=== PATIENT | male | born 1950 | race Asian ===

== ENCOUNTER 2018-05-30 00:20 | Inpatient (IN) | payer OTHER, BC ==
[~2018-05-30] VITALS: Ht 172.7 cm; Wt 79.4 kg
[2018-05-30] VITALS (13 sets, daily range): BP systolic 149–208; BP diastolic 80–112
[~2018-05-30 00:20] MED LIST: AMLODIPINE BESY10 MG PO; ASA81BEC PO; ASPERDRINK81 MG PO; ATORVASTATIN CA40 MG PO; FLOMAX0.4 MG PO; LASIX 40 MG TAB40 M2; LIDODERM 5%1 PATC1 TOP; LIPITOR40 MG PO; MEDROLDOSEPACK PO; MILK OF MA400 MG/5 M PO; MOM PO; NITROGLYCERIN0.4 MG SUBLING; NORCO 5-325 TA1 EACH; NORCO 5-325 TA1 EACH PO; NORVASC10 MG; NORVASC10 MG PO; PENICILLIN V P500 MG; PERCOCET; PERCOCET PO; POTASSIUM20 PO; TOPROL XL50 MG PO; TRAMADOL 50 MG50 MG PO; TUMS; TYLENOL325 MG PO; UNICOMPLEX M TA1 TA1 PO
[2018-05-30] MEDS ORDERED: LOPRESSOR100 M1 PO (00:54)
[2018-05-30] MEDS ORDERED: NORVASC5 MG PO (00:55)
[2018-05-30] MEDS ORDERED: CLONIDINE0.1 PO (00:55)
[2018-05-30 03:10] LABS: ABSOLUTE NEUTROPHILS 8.7 thou/uL (1.4-8.2); BASOPHILS 0.8 % (0.0-2.0); EOSINOPHILS 0.8 % (0.0-3.0); HEMATOCRIT 45.6 % (42.0-52.0); HEMOGLOBIN 15.6 gm/dL (14.0-18.0); LYMPHOCYTES 11.1 % (24.0-44.0); MCHC 34.2 g/dL (28.0-37.0); MCV 87.7 fL (80.0-100.0); MONOCYTES 6.5 % (1.0-8.0); PLATELET COUNT 207 thou/uL (150-400); POLYS 80.8 % (36.0-66.0); RDW 13.7 % (10.5-14.5); WBC 10.7 thou/uL (4.0-11.0)
[2018-05-30 03:20] LABS: ANION GAP 8 mmol/L (7-16); BUN 24 mg/dL (7-18); CALCIUM 8.7 mg/dL (8.5-10.1); CHLORIDE 104 mmol/L (98-107); CO2 27 mmol/L (21-32); GLUCOSE 179 mg/dL (74-106); POTASSIUM 3.2 mmol/L (3.5-5.1); SODIUM 139 mmol/L (136-145)
[2018-05-30 03:28] LABS: TROPONIN-I <0.06 ng/mL (<0.06)
--- NOTE | 2018-05-30 05:41 | NUR ---
PATIENT IS A NEW ADMISSION TO THE UNIT THIS SHIFT. HE ARRIVED VIA CART FROM THE ER AND WAS ABLE TO AMBULATE TO THE BED WITHOUT INCIDENT. PATIENT IS ALERT AND ORIENTED AND ABLE TO PARTICIPATE IN ADMISSION PROCESS AND CALL APPROPRIATELY FOR REQUESTS. PATIENT STATES MINIMAL PAIN IN FACE CURRENTLY AND IS BEING TREATED WITH ICE PACKS. NURSE TO COMPLETE ADMISSION AND INITIATE CARE PLAN.
--- NOTE | 2018-05-30 08:02 | EKG ---
[address] [address] ELECTROCARDIOGRAM REPORT Name: YOLANDA HENAO Room #: 355-P ADM IN M.R.#: [id number] ������������������ Admission: 05/30/18 ������������������ Attend Phys: Mika Soriano MD Discharge: ������������������ Date of : 52 Report #: [id number] ����������������������������������������������������������������� [id number] THIS REPORT FOR: //name// [facility] ED Test Date: 2018-05-30 Test Time: 02:51:39 Pat Name: YOLANDA HENAO Department: Room: [facility] Gender: M Absence Management Consultant: Fifi HENSLEY : 1950 Requested By: Kan Swan Order Number: [id number] MD: Jack Johnson Measurements Intervals [place] Rate: 70 P: 34 SD: 206 QRS: -4 QRSD: 97 T: 69 QT: 414 QTc: 447 Interpretive Statements Sinus rhythm Poor R wave progression Compared to ECG 07/18/2013 12:46:43 No significant change was found Electronically Signed On 05-30-2018 8:02:26 CDT by Jack Johnson [email or web address] ��������������������������������������������� <ELECTRONICALLY SIGNED> ���������������������������������������� By: Jack Johnson MD, [facility] ��������������������������������������������� 05/30/18 08 0 0 Jack Johnson MD, FACC /EPI
--- NOTE | 2018-05-30 09:23 | 2DMMODE ---
[facility] [address] [place] [address] 2 D/M-MODE ECHOCARDIOGRAM Name: YOLANDA HENAO Room #: 355-P [facility] IN .R.#: [id number] ������������� Admission: 05/30/18 ������������� Attend Phys: Mika Soriano MD Discharge: ��� ������������� ��� Date of : 52 Date of Service: 05/30/18 0922 �� Report #: [id number] �������� ��������������������������������������������[id number] THIS REPORT FOR: //name// APPROVED REPORT Study performed: 05/30/2018 08:18:26 EXAM: Comprehensive 2D, Doppler, and color-flow Echocardiogram Patient Location: Echo lab Room #: [facility] Status: routine BSA: 1.91 HR: 65 bpm BP: 151/88 mmHg Rhythm: NSR/FREQUENT PVCs Other Information Study Quality: Good Indications Syncope. Hx: HTN, CABG. 2D Dimensions RVDd: 34.24 mm IVSd: 11.00 (7-11mm) LVOT Diam: 21.29 (18-24mm) LVDd: 48.36 mm PWd: 11.00 (7-11mm) Ascending Ao: 42.05 (22-36mm) LVDs: 31.09 (25-40mm) Aortic Root: 37.48 mm Volumes Left Atrial Volume (Systole) Single Plane 4CH: 40.91 mL Single Plane 2CH: 41.91 mL LA ESV Index: 23.00 mL/m2 Aortic Valve AoV Peak Jordan.: 1.43 m/s AO Peak Gr.: 8.19 mmHg LVOT Max P.33 mmHg LVOT Max V: 1.26 m/s ALAN Vmax: 3.13 cm2 Mitral Valve E/A Ratio: 0.8 MV Decel. Time: 292.16 ms MV E Max Jordan.: 0.65 m/s [facility] [address] [place] [address] 2 D/M-MODE ECHOCARDIOGRAM Name: YOLANDA HENAO Room #: 355-[facility] IN ..#: [id number] ������������� Admission: 05/30/18 ������������� Attend Phys: Mika Soriano MD Discharge: ��� ������������� ��� Date of : 52 Date of Service: 05/30/18 0922 �� Report #: [id number] �������� ��������������������������������������������[id number] MV A Jordan.: 0.81 m/s MV PHT: 84.73 ms IVRT: 101.50 ms Pulmonary Valve PV Peak Jordan.: 0.74 m/s PV Peak Gr.: 2.19 mmHg Pulmonary Vein P Vein S: 0.78 m/s P Vein D: 0.38 m/s P Vein S/D Ratio: 2.05 Tricuspid Valve TR Peak Jordan.: 2.10 m/s RAP Estimate: 5.00 mmHg TR Peak Gr.: 17.70 mmHg PA Pressure: 23.00 mmHg Left Ventricle The left ventricle is normal size. There is normal LV segmental wall motion. Mild concentric left ventricular hypertrophy. Left ventricular systolic function is normal. LVEF is 65%. Mild diastolic dysfunction is present (impaired relaxation pattern). Right Ventricle The right ventricle is normal size. The right ventricular systolic function is normal. Atria The left atrium size is normal. The right atrium size is normal. Aortic Valve Aortic valve is trileaflet, minimally calcified. Trace aortic regurgitation. There is no aortic valvular stenosis. Mitral Valve The mitral valve is normal in structure. Trace to mild mitral regurgitation. Tricuspid Valve The tricuspid valve is normal in structure. Trace to mild tricuspid regurgitation. Estimated PAP is 20-25mmHg. Pulmonic Valve The pulmonary valve is normal in structure. Mild pulmonic regurgitation. [facility] [address] [place] [address] 2 D/M-MODE ECHOCARDIOGRAM Name: YOLANDA HENAO Room #: 355-P [facility] IN .R.#: [id number] ������������� Admission: 05/30/18 ������������� Attend Phys: Mika Soriano MD Discharge: ��� ������������� ��� Date of : 52 Date of Service: 05/30/18 0922 �� Report #: [id number] �������� ��������������������������������������������[id number] [employer] Vessels The aortic root is normal in size. Ascending aorta is dilated (4.2cm). IVC is normal in size and collapses >50% with inspiration. Pericardium There is no pericardial effusion. <Conclusion> Left ventricular systolic function is normal. LVEF is 65%. Normal LV segmental wall motion. Mild diastolic dysfunction Aortic valve is trileaflet, minimally calcified. Trace aortic regurgitation, no stenosis. The mitral valve is normal in structure. Trace to mild mitral regurgitation. Trace to mild tricuspid regurgitation. Estimated pulmonary artery pressure of 20-25mmHg. Ascending aorta is dilated (4.2cm). There is no pericardial effusion. ��������������������������������������������� <ELECTRONICALLY SIGNED> ���������������������������������������� By: Jack Johnson MD, [facility] ��������������������������������������������� 05/30/18921 1 1 Jack Johnson MD, FACC /INF
--- NOTE | 2018-05-30 09:55 | NUR ---
ASSESSMENT: CM REVIEWED CHART AND MET WITH PATIENT AT THE BEDSIDE. PT WAS ADMITTED DUE TO SYNCOPE AND FALLING WHILE HE WAS OUT WALKING HIS DOG. PT IS ALERT AND ORIENTED X4. PT REPORTS SHE LIVES AT HOME WITH HIS . PT IS FULLY INDEPENDENT WITH ADLS AND AMBULATION. PT HAS NO HX OF HH/POST ACUTE CARE AND REPORTS HE IS ACTIVE. CM DISCUSSED ROLE. PT DOES NOT ANTICIPATE HAVING ANY NEEDS FROM CM. CM WILL CONTINUE TO FOLLOW TO ASSIST NEEDED. CARDIOLOGY HAS BEEN CONSULTED.
--- NOTE | 2018-05-30 18:08 | NUR ---
ADMITTED FOR SYNCOPE AND WORK UP CONT. HE IS NOW SLEEPING AND RESPIRATIONS ARE NON LABORED. ALERT ORIENTED X4. HAD CAROTID US DONE THIS PM. PLEASANT WITH CARE. WILL CONT WITH PLAN OF CARE.
[2018-05-31] VITALS (7 sets, daily range): BP systolic 129–158; BP diastolic 81–93
[2018-05-31 04:43] LABS: CALCIUM 8.6 mg/dL (8.5-10.1); POTASSIUM 3.1 mmol/L (3.5-5.1)
--- NOTE | 2018-05-31 06:11 | NUR ---
Pt. stated he slept well during the night. Minimal pain to left side of face , denies need for pain med . Ice pack provided and stated it helped. No synopal episode. Bed alarm on , calls appropriately. Making progress towards care plan goals.
--- NOTE | 2018-05-31 16:29 | NUR ---
PATIENT DISCHARGED HOME AT THIS TIME. STATES HE FEEL MUCH BETTER. NO COMPLAIN OF PAIN OR DISTRESS. PLEASANT AND COOPERATIVE WITH CARE. WALKED WITH SON TO CAR.
--- NOTE | 2018-06-03 12:28 | HC ---
[facility] [place] [address] CONSULTATION Name: YOLANDA HENAO Room #: 355-P [facility] IN .R.#: [id number] Admission: 05/30/18 ������������������ Attend Phys: Trever Ta Discharge: 05/31/18 ������������������ Date of : 52 Report #: [id number] THIS REPORT FOR: //name// CC: [facility] Trever Mariee DATE OF SERVICE: 05/31/2018 REASON FOR CONSULTATION: Facial injury. HISTORY OF PRESENT ILLNESS: I was asked to see this patient in regards to a fall that took place about 2 days ago. The patient served as the primary historian. He relates that he fell while walking his dog, but does not remember the fall occurring. When he came out of the syncope, found some blood on his clothes and presented to the Emergency Room. He was found to have some nondisplaced facial fractures and was admitted for evaluation of his syncope. The patient denies since being here of any problems with diplopia. He denies any facial paresthesia. He denies any pain on mastication or limitation of mastication. He has no trismus. He has not noted any visual shifts and states the facial edema is not progressing. He has no new complaints at this time regarding his face since being admitted. ALLERGIES TO MEDICATION: None known. MEDICATIONS ON ADMISSION: Reviewed the patient's med rec form. PAST MEDICAL HISTORY: Notable for essential hypertension, hyperlipidemia, coronary artery disease and benign prostatic hypertrophy. He has had a previous CABG. REVIEW OF SYSTEMS: His present review of systems are negative for any neurologic, cardiovascular or facial issues. PHYSICAL EXAMINATION: He was examined in the hospital chair. He is alert, oriented and conversant. Modest left-sided facial edema is noted with rather prominent left infraorbital ecchymoses and edema present. Examination of the oral cavity shows intact dentition. The oral cavity shows no evidence of any bruising/ecchymoses. Oropharynx is unremarkable. Mid face is stable to movement of the dentition. Intranasal examination shows no evidence of septal hematoma. Nasal septum is relatively straight. Turbinates are normal. By palpation, the ramus and body of the mandible are normal. He has no TMJ pain on palpation or during mastication. The forehead is unremarkable. The orbital rims palpate intact and bilaterally symmetric. He has moderate edema over the left maxilla. The zygomatic arches are intact and symmetric. He has full [address] [address] CONSULTATION Name: YOLANDA HENAO Room #: 355-P DIS IN M.R.#: [id number] Admission: 05/30/18 ������������������ Attend Phys: Trever Ta Discharge: 05/31/18 ������������������ Date of : 52 Report #: [id number] extraocular movement. DIAGNOSTIC DATA: I reviewed his CT scan. There was evidence of nondisplaced left lateral orbit fracture, left anterior maxillary antral wall fracture, posterolateral maxillary wall fracture which was displaced and a very small chip fracture on the nasal tip. His mid face otherwise appears stable. ASSESSMENT: History of facial fracture following a fall. RECOMMENDATIONS: I believe these can be treated nonsurgically as he has a stable mid face. I did recommend avoiding of nasal blowing for several weeks. I would recommend he see his link trainer mechanic on a followup when he leaves the hospital to ensure there are no retinal abnormalities from the fall. He was made aware that the facial fracture should heal in a period of 6-8 weeks and he should avoid any activities that would cause further trauma directly to the left mid face. He was given information that he may be at slightly higher risk for chronic left maxillary sinusitis in the future due to the location of the injuries. I gave him my business card. He will follow up with me should he have any concerns about sensations in the face over the next 4-6 weeks. Thank you for the consultation. ��������������������������������������������� <ELECTRONICALLY SIGNED> ���������������������������������������� By: Nick Mcneil MD ��������������������������������������������� 06/03/18 1228 1520 0240 Nick Mcneil MD /nt
== END 2018-05-31 16:26 | disposition home or self-care (01) | DRG 157 ==
LOC: ER 00:20 → EROBS 03:48 → 3W 03:48
PROVIDERS: Emergency Medicine; Nurse Practitioner Family; ADMIT Hospitalist
DX: S02.40DA Maxillary fracture, left side, initial encounter for closed fracture (principal); E43 Unspecified severe protein-calorie malnutrition; S02.40FA Zygomatic fracture, left side, initial encounter for closed fracture; I25.10 Atherosclerotic heart disease of native coronary artery without angina pectoris; I10 Essential (primary) hypertension; E87.6 Hypokalemia; E78.5 Hyperlipidemia, unspecified; N40.0 Benign prostatic hyperplasia without lower urinary tract symptoms; W01.0XXA Fall on same level from slipping, tripping and stumbling without subsequent striking against object, initial encounter; Z95.1 Presence of aortocoronary bypass graft; Z79.82 Long term (current) use of aspirin; Z79.899 Other long term (current) drug therapy; Y93.89 Activity, other specified; Y92.89 Other specified places as the place of occurrence of the external cause; Y99.8 Other external cause status
CPT/HCPCS: 10879

== ENCOUNTER → 2019-08-13 | Outpatient (CLI) | payer OTHER, BC ==
[~2019-08-13] MED LIST changes: +CLONIDINE0.1 PO; +LOPRESSOR100 M1 PO; +NORVASC5 MG PO
== END ==
LOC: SJCVCIMAG 08-05 11:55
DX: I25.810 Atherosclerosis of coronary artery bypass graft(s) without angina pectoris (principal); I77.810 Thoracic aortic ectasia; Z95.1 Presence of aortocoronary bypass graft

== ENCOUNTER 2020-02-03 14:21 | Inpatient (IN) | payer OTHER, BC ==
[~2020-02-03] VITALS: Ht 172.7 cm; Wt 77.1 kg
[~2020-02-03 14:21] MED LIST changes: -LOPRESSOR100 M1 PO; +TOPROL XL100 MG PO
[2020-02-03 14:45] VITALS: BP 185/99
[2020-02-03] MEDS ORDERED: CLONIDINE HCL0.1 M1 PO (14:55)
[2020-02-03] MEDS ORDERED: LIPITOR 20 MG T20 M1 PO (14:55)
[2020-02-03 15:46] LABS: ANION GAP 8 mmol/L (7-16); BUN 15 mg/dL (7-18); CHLORIDE 100 mmol/L (98-107); CO2 28 mmol/L (21-32); CREATININE 1.1 mg/dL (0.7-1.3); GLUCOSE 160 mg/dL (74-106); POTASSIUM 3.1 mmol/L (3.5-5.1); SODIUM 136 mmol/L (136-145)
[2020-02-03 15:49] LABS: ABSOLUTE NEUTROPHILS 5.1 thou/uL (1.4-8.2); BASOPHILS 0.1 % (0.0-2.0); EOSINOPHILS 0.1 % (0.0-3.0); HEMATOCRIT 46.6 % (42.0-52.0); HEMOGLOBIN 15.7 gm/dL (14.0-18.0); LYMPHOCYTES 8.2 % (24.0-44.0); MCH 29.4 pg (26.0-34.0); MCHC 33.7 g/dL (28.0-37.0); MCV 87.1 fL (80.0-100.0); MONOCYTES 10.1 % (1.0-8.0); PLATELET COUNT 192 thou/uL (150-400); POLYS 81.5 % (36.0-66.0); RBC 5.35 mil/uL (4.50-6.00); RDW 13.1 % (10.5-14.5); WBC 6.3 thou/uL (4.0-11.0)
--- NOTE | 2020-02-03 15:53 | EKG ---
[facility] [place] [address] ELECTROCARDIOGRAM REPORT Name: YOLANDA HENAO Room #: [facility]#: [id number] Admission: 02/03/20 Attend Phys: Discharge: Date of : 52 Report #: [id number] THIS REPORT FOR: cc: David Mariee MD, Kirk D. 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 : 1950 Requested By: Ghada Kenney Order Number: [id number] MD: Winston Macias Measurements Intervals [place] Rate: 88 P: 57 NE: 152 QRS: 47 QRSD: 92 T: 15 QT: 408 QTc: 494 Interpretive Statements Sinus rhythm Left atrial enlargement Minimal ST depression, lateral leads Borderline prolonged QT interval Compared to ECG 05/30/2018 02:51:39 Atrial abnormality now present ST (T wave) deviation now present Poor R-wave progression no longer present Electronically Signed On 02-03-2020 15:53:40 ANESTHESIOLOGY MEDICAL DOCTOR by Winston Macias [email or web address] <ELECTRONICALLY SIGNED> By: Winston Macias MD, FAC 02/03/20 1553 1447 1447 Winston Macias MD, [facility] /EPI
[2020-02-03 15:56] LABS: ALBUMIN 2.9 g/dL (3.4-5.0); SGOT 57 U/L (15-37); SGPT 54 U/L (30-65); TOTAL BILIRUBIN 1.3 mg/dL (0.2-1.0); TOTAL PROTEIN 7.3 g/dL (6.4-8.2); TROPONIN-I <0.06 ng/mL (<0.06)
--- NOTE | 2020-02-03 19:04 | NUR ---
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 EMERGENCY CONTACT UPDATED (SON ON LIST) REQUESTED BY PT.
[2020-02-03 19:19] LABS: BE(vivo) 2.7 mmol/L (-2 to +3); HCO3 25.4 mmol/L (22.0-26.0); PCO2 33.6 mmHg (35.0-45.0); PO2 78.1 mmHg (80.0-100.0); pH 7.496 (7.360-7.450); sO2 96.5 % (92.0-98.0)
[2020-02-04] VITALS (7 sets, daily range): BP systolic 159–198; BP diastolic 93–121
--- NOTE | 2020-02-04 01:08 | NUR ---
NEW ADMIT FROM ED. PT WAS AT HOME SOA, FEVER COUGH. PT TESTED POSITIVE COVID AT [facility] ON 01/21. PT STATED HIS YOUNGEST SON HAS TESTED POSITIVE. PT LIVES WITH HIS . PTS DESIGNATED CREDIT MANAGER IS HIS SON ANTWON. PT IS A0X4, INDEP STEADY GAIT. O2 PER NC 1L. LUNGS DIMINISHED. PT REQUESTING FOOD AND PROVIDED. PT HAS HX HTN, CABG, HIGH CHOLESTEROL. PT RECEIVED IV ANTIBIOTICS IN ED.
--- NOTE | 2020-02-04 01:34 | NUR ---
CUT OUT STITCHER PROVIDER NOTIFIED OF ELEVATED BP. PT REPORTS NOT TAKING ANY OF HIS DIALY MEDICATIONS TODAY. ORDER TO GIVE AM LOPRESSOR NOW.
[2020-02-04 05:50] LABS: HEMATOCRIT 47.3 % (42.0-52.0); HEMOGLOBIN 16.3 gm/dL (14.0-18.0); MCH 30.1 pg (26.0-34.0); MCHC 34.6 g/dL (28.0-37.0); MCV 87.1 fL (80.0-100.0); RBC 5.42 mil/uL (4.50-6.00); RDW 13.5 % (10.5-14.5); WBC 3.4 thou/uL (4.0-11.0)
--- NOTE | 2020-02-04 06:05 | NUR ---
BP REMAINS ELEVATED, PROVIDER NOTIFIED, AM BP MEDS PROVIDED.
[2020-02-04 06:10] LABS: CALCIUM 9.1 mg/dL (8.5-10.1); MAGNESIUM 2.3 mg/dL (1.8-2.4); POTASSIUM 3.7 mmol/L (3.5-5.1)
[2020-02-04 11:23] LABS: ALBUMIN 2.5 g/dL (3.4-5.0); CREATININE 1.3 mg/dL (0.7-1.3); DIRECT BILIRUBIN 0.3 mg/dL (<0.1-0.2); TOTAL BILIRUBIN 0.9 mg/dL (0.2-1.0); TOTAL PROTEIN 6.9 g/dL (6.4-8.2)
--- NOTE | 2020-02-04 14:09 | NUR ---
PT IS AOX4, VSS, WATCHING ELEVATED BP. TOOK BP MEDS ORDERED. REMAINS ON 1L O2. PT DENIES PAIN, IV PATENT WITH ANTIBIOTICS FLOWING. PT REPORTS SOA WITH ACTIVITY AND OXYGEN IS HELPING HIM RELAX. CALL LIGHT IN REACH. WILL CONTINUE TO MONITOR.
--- NOTE | 2020-02-04 15:44 | NUR ---
INITIAL ASSESSMENT: Received consult for discharge planning. SW reviewed chart and spoke with nursing. Pt was admitted from home and placed in Enhanced Isolation due to COVID-19. Pt had first positive COVID test on 01/25. Pt is afebrile and on 2L of O2. Pt is on IV abx and IV steroids. Pt to be started on Remdesivir. SW spoke with pt via phone. Introduced role of SW. Pt is alert/orientated x 4. Pt reports he lives at home with his . Pt has stairs to enter the house and up to the second level where the bedroom is located. Prior to admission, pt was independent with ADLs. Pt had CABG in 2014. No hx of services or post-acute placement. Pt's PCP was Dr. David Mariee, who recently . Pt is unsure who his new PCP will be. 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 Pt states that he may need documentation to verify pt's hospitalization, as his family had arrangements to go on vacation for the . SW provided contact info to assist with documentation if needed. Plan is for pt to return home when medically stable. SW is following to assist as needed with discharge planning.
[2020-02-05 00:13] VITALS: BP 143/101
--- NOTE | 2020-02-05 01:44 | NUR ---
PT INDEP STEADY GAIT, O2 PER NC. LUNGS DIMINSHED, COUGH DRY. IV ANTIBIOTICS PROVIDED. PRN FOR ELEVATED BP.
[2020-02-05 04:19] VITALS: BP 180/112
--- NOTE | 2020-02-05 06:23 | NUR ---
AM BP ELEVATED PRN HYDRALAZINE REPEATED.
[2020-02-05 06:58] LABS: ALBUMIN 2.5 g/dL (3.4-5.0); CREATININE 1.1 mg/dL (0.7-1.3); DIRECT BILIRUBIN 0.2 mg/dL (<0.1-0.2); TOTAL BILIRUBIN 0.6 mg/dL (0.2-1.0); TOTAL PROTEIN 6.5 g/dL (6.4-8.2)
[2020-02-05 07:15] VITALS: BP 158/101
--- NOTE | 2020-02-05 12:13 | EKG ---
[facility] [place] [address] ELECTROCARDIOGRAM REPORT Name: JULIANOYOLANDA Fowler Room #: 359- ADM IN M.R.#: [id number] Admission: 02/03/20 Attend Phys: Pa Hernandez MD Discharge: Date of : 52 Report #: [id number] THIS REPORT FOR: cc: David Mariee MD, Kirk D. 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 : 1950 Requested By: Pa Hernandez Order Number: [id number] MD: Winston Macias Measurements Intervals [place] Rate: 80 P: 42 [place]: 176 QRS: -7 QRSD: 98 T: 66 QT: 393 QTc: 454 Interpretive Statements Sinus rhythm Atrial premature complex Anteroseptal infarct, age indeterminate Compared to ECG 02/03/2020 14:47:38 Atrial premature complex(es) now present Myocardial infarct finding now present Atrial abnormality no longer present ST (T wave) deviation no longer present Electronically Signed On 02-05-2020 12:12:24 SIGNAL INSPECTOR by Winston Macias [email or web address] <ELECTRONICALLY SIGNED> By: Winston Macias MD, FACC 02/05/20 1212 1002 1002 Winston Macias MD, FACC /EPI
--- NOTE | 2020-02-05 12:22 | HC ---
[facility] [place] [address] CONSULTATION Name: YOLANDA HENAO Room #: 359-P ADM IN M.R.#: [id number] Admission: 02/03/20 Attend Phys: Pa Hernandez MD Discharge: Date of : 52 Report #: [id number] THIS REPORT FOR: cc: David Mariee MD, Kirk D. MD Barry, Joseph W. MD ~ DATE OF SERVICE: 02/04/2020 INFECTIOUS DISEASE CONSULTATION ATTENDING PHYSICIAN: Dr. Hernandez. REASON FOR EVALUATION: COVID-19 infection, complicated by pneumonitis, hypoxemia. HISTORY OF SUBJECTIVE: Chart reviewed, the patient examined. This is a 69-year-old man with history of known vasculopathy, coronary artery disease, hypertension, who noted fairly symptomatic with dyspnea and cough roughly on 01/22/2020. He was tested in an urgent care. He was confirmed around the 01/26/2020. Due to his lack of improvement, he early on, had fevers, although these have resolved. He has had some anorexia with poor p.o. intake. He has got this persistent cough, primarily nonproductive as well as progressive dyspnea. He was evaluated and found to be COVID PCR positive. Chest x-ray did confirm patchy interstitial alveolar infiltrates. ABGs were borderline hypoxemia. He is not encephalopathic due to concerns about progressive pneumonitis. He was initiated on therapy with remdesivir as well as corticosteroids as well as azithromycin and ceftriaxone for possible secondary bacterial pneumonitis. At this point, he is on supplemental oxygen at 2 liters nasal cannula. ALLERGIES: None known. MEDICATIONS: Include azithromycin, ceftriaxone, multivitamin, amlodipine, metoprolol, clonidine, tamsulosin, aspirin, atorvastatin, enoxaparin, dexamethasone 10 mg q. 12 hours, remdesivir a standard loading dose of 100 daily for 4 days. PAST MEDICAL HISTORY: As described above, coronary artery disease with previous aortocoronary bypass grafting in 2015, has hypertension, dyslipidemia, possible obstructive sleep apnea. SOCIAL HISTORY: Nonsmoker, no ethanol, no illicit drug use. FAMILY HISTORY: Noncontributory. [facility] [address] [address] CONSULTATION Name: YOLANDA HENAO Room #: 359-P [facility] IN .R.#: [id number] Admission: 02/03/20 Attend Phys: aP Hernandez MD Discharge: Date of : 52 Report #: [id number] REVIEW OF SYSTEMS: As above. PHYSICAL EXAMINATION: GENERAL: Pleasant, alert, cooperative, in mild distress at this point. He is lucid, somewhat chronically ill. VITAL SIGNS: Temperature 97, pulse 64, respirations 16, blood pressure 184/109. SKIN: Warm, dry, no rashes. HEENT: Normocephalic. Extraocular muscles intact. Nasal cannula in place. NECK: Supple. LUNGS: Few scattered coarse breath sounds. HEART: Regular. Borderline bradycardic. I do not appreciate a murmur. ABDOMEN: Soft, nontender, nondistended. EXTREMITIES: No cyanosis. GENITOURINARY AND RECTAL: Deferred. LABORATORY DATA: Initial CBC: White count of 6.3, H and H 15.7 and 46.6, platelets of 192. Electrolytes: Sodium 136, potassium 3.1, chloride 100, bicarbonate 28, anion gap of 8, BUN and creatinine 15 and 1.1. AST of 57, ALT of 54. Albumin of 2.9, total protein 7.3, estimated GFR of 67. ProBNP of 659. Chest x-ray as described above. ASSESSMENT: COVID-19 infection, complicated by pneumonitis and respiratory failure. Secondly, has atherosclerotic coronary artery disease, potential sleep apnea as well. We will continue current approach with a combination of empiric antibacterials as well as treatment for the coronavirus. At this point, he is not critically ill. We will monitor expectantly to make efforts to wean off support and follow expectantly. <ELECTRONICALLY SIGNED> By: Umang Castillo MD 02/05/20 1222 1438 1020 Umang Castillo MD /nt
--- NOTE | 2020-02-05 14:44 | NUR ---
ZHANG reviewed chart and spoke with nursing and attending physician. Pt remains in Enhanced Isolation due to COVID-19. Pt is afebrile and on 2L of O2. Pt is on IV abx and IV steroids. Completing course of Remdesivir. SW spoke with pt via phone. Confirmed pt received contact info for [facility]HANG in order to assist with providing documentation to cancel upcoming travel plans. ZHANG is following to assist as needed with discharge planning.
[2020-02-05 15:24] VITALS: BP 154/95
--- NOTE | 2020-02-05 19:28 | NUR ---
ASSUMED PATIENT CARE AT 0700. A/O 4. VSS. SOB WITH EXERTION. SLOWLY TOWARDS POC GOALS.
[2020-02-05 20:00] VITALS: BP 165/102
[2020-02-06 02:00] VITALS: BP 149/85
[2020-02-06 05:00] VITALS: BP 193/84
[2020-02-06 06:35] LABS: ALBUMIN 2.5 g/dL (3.4-5.0); DIRECT BILIRUBIN 0.2 mg/dL (<0.1-0.2); TOTAL BILIRUBIN 0.5 mg/dL (0.2-1.0); TOTAL PROTEIN 5.8 g/dL (6.4-8.2)
[2020-02-06 08:26] VITALS: BP 171/95
--- NOTE | 2020-02-06 14:44 | NUR ---
SW reviewed chart and spoke with nursing and attending physician. Pt remains in Enhanced Isolation due to COVID-19. Pt is afebrile and on 2L of O2. Pt is on IV abx and IV steroids. Pt is completing course of Remdesivir. No weekend discharge planned. Pt to have rest/exercise oximetry to determine if pt needs home O2. Plan is for pt to discharge home when medically stable. ZHANG is following to assist as needed with discharge planning.
[2020-02-06 15:28] VITALS: BP 175/106
--- NOTE | 2020-02-06 18:20 | NUR ---
ASSUMED PATIENT CARE AT 0700. A/O X. UP AD DEBORAH IN ROOM. SOB WHEN WALKING. SLOWLY TOWARDS POC GOALS.
[2020-02-06 19:51] VITALS: BP 162/96
[2020-02-07 03:27] VITALS: BP 161/94
--- NOTE | 2020-02-07 05:19 | NUR ---
PT ON O2 A 2L PER NC. LUNGS CLEAR, DIMINISHED THROUGHOUT. DENIES ANY SOA AT REST AND STATES HE BELIEVE HIS BREATHING SLIGHTLY BETTER THAN WHEN HE WAS ADMITTED.
[2020-02-07 08:00] VITALS: BP 170/89
[2020-02-07 08:25] LABS: ALBUMIN 2.5 g/dL (3.4-5.0); DIRECT BILIRUBIN 0.2 mg/dL (<0.1-0.2); TOTAL BILIRUBIN 0.6 mg/dL (0.2-1.0); TOTAL PROTEIN 6.1 g/dL (6.4-8.2)
[2020-02-07 15:57] VITALS: BP 167/92
--- NOTE | 2020-02-07 19:39 | NUR ---
PATIENT PLEASANT WITH CARE AND DOES NOT SEEM TO BE IN PAIN. RESPIRATIONS ARE NON LABORED. CONT ON ABT FOR COVID. TOLERATING WELL. IV INFILTRATED TO RIGHT FOREARM AND NEW IV PLACED TO LEFT FOREARM. UP AD DEBORAH. WILL CONT WITH PLAN OF CARE.
[2020-02-07 20:45] VITALS: BP 177/101
[2020-02-08 04:45] VITALS: BP 156/80
[2020-02-08 06:00] LABS: ALBUMIN 2.4 g/dL (3.4-5.0); DIRECT BILIRUBIN 0.1 mg/dL (<0.1-0.2); TOTAL BILIRUBIN 0.5 mg/dL (0.2-1.0); TOTAL PROTEIN 5.7 g/dL (6.4-8.2)
[2020-02-08 08:36] VITALS: BP 160/92
[2020-02-08 15:31] VITALS: BP 143/68
--- NOTE | 2020-02-08 19:04 | NUR ---
CONT ON ABT FOR COVID AND PNEU. PATIENT PLEASANT WITH CARES. NO COMPLAIN OF PAIN NOTED. WILL CONT WITH PLAN OF CARE.
[2020-02-08 19:41] VITALS: BP 158/99
--- NOTE | 2020-02-09 02:05 | NUR ---
PT AMBULATING IN ROOM INDEPENDENTLY AND IS TOLERATING FAIR. DENIES PAIN. POSSIBLE DISCHARGE HOME 02/08. RESTING COMFORTABLY. NO NEEDS VOICED. CALL LIGHT WITHIN REACH. FREQUENT OBSERVATION.
[2020-02-09 08:00] VITALS: BP 134/86
[2020-02-09] MEDS ORDERED: PREDNISONE 5 MG5 MG PO (14:10)
[2020-02-09] MEDS ORDERED: AMLODIPINE BESY10 MG PO (14:10)
[2020-02-09] MEDS ORDERED: CEFDINIR300 MG PO (14:10)
--- NOTE | 2020-02-09 14:16 | NUR ---
DISCHARGE NOTE: ZHANG reviewed chart and spoke with nursing and attending physician. Pt remains in Enhanced Isolation due to COVID-19. Pt is afebrile and on 2L of O2. Pt is medically stable for discharge home today. Recommendation made for pt to HH services. Rest/exercise oximetry ordered to determine if pt needs home O2. ZHANG spoke with pt via phone to discuss discharge plan. Pt is agreeable with HH and Home O2 if needed. SW confirmed pt's home address and phone number. ZHANG provided options for HH and DME providers. No preference voiced. ZHANG faxed HH referral to [facility]. Notified liaison of new referral. Awaiting finalized discharge orders/summary at this time. Pt's family to provide transportation home. ZHANG is following to finalize discharge.
[2020-02-09 15:16] VITALS: BP 134/86
[2020-02-09 16:29] VITALS: BP 134/86
[2020-02-09 16:57] VITALS: BP 134/86
[2020-02-09 17:00] VITALS: BP 134/86
--- NOTE | 2020-02-10 14:24 | NUR ---
PT DISCHARGED LATE YESTERDAY TO HOME WITH [facility] FAXED DC ORDERS/SUMMARY AND WILL NOTIFY PT TIME OF VISITS.
--- NOTE | 2020-02-11 07:45 | NUR ---
BPCI LETTER ISSUED TO PATIENT IN CONJUNCTION WITH ADMISSION PASCKET COPY GIVEN BY REGISTRATION
== END 2020-02-09 18:35 | disposition home health service (06) | DRG 871 ==
LOC: ER 14:21 → EROBS 18:14 → 3W 18:14
PROVIDERS: Physician Assistant; ADMIT Internal Medicine; ATTEND Internal Medicine
PROC: XW033E5 Introduction of Remdesivir Anti-infective into Peripheral Vein, Percutaneous Approach, New Technology Group 5 (ICD-10-PCS; principal; 2020-02-04)
DX: A41.9 Sepsis, unspecified organism (principal); U07.1 COVID-19; J96.01 Acute respiratory failure with hypoxia; J12.89 Other viral pneumonia; J15.9 Unspecified bacterial pneumonia; G47.33 Obstructive sleep apnea (adult) (pediatric); N40.0 Benign prostatic hyperplasia without lower urinary tract symptoms; I10 Essential (primary) hypertension; I25.10 Atherosclerotic heart disease of native coronary artery without angina pectoris; E78.5 Hyperlipidemia, unspecified; Z95.1 Presence of aortocoronary bypass graft; Z79.899 Other long term (current) drug therapy
CPT/HCPCS: 10879

== ENCOUNTER → 2020-04-08 | Outpatient (CLI) | payer OTHER, BC ==
[~2020-04-08] MED LIST changes: +CEFDINIR300 MG PO; +CLONIDINE HCL0.1 M1 PO; +LIPITOR 20 MG T20 M1 PO; +PREDNISONE 5 MG5 MG PO
== END ==
LOC: SJCVC 10:24
PROVIDERS: ATTEND Internal Medicine Cardiovascular Disease
DX: R94.31 Abnormal electrocardiogram [ECG] [EKG] (principal); I25.10 Atherosclerotic heart disease of native coronary artery without angina pectoris; I10 Essential (primary) hypertension; E78.00 Pure hypercholesterolemia, unspecified; R06.00 Dyspnea, unspecified; N40.0 Benign prostatic hyperplasia without lower urinary tract symptoms; E78.5 Hyperlipidemia, unspecified; Z95.1 Presence of aortocoronary bypass graft; Z79.82 Long term (current) use of aspirin; Z79.899 Other long term (current) drug therapy; Z86.16 Personal history of COVID-19

== ENCOUNTER → 2020-05-12 | Outpatient (CLI) | payer OTHER, BC | LOC: RAD 13:25 | PROVIDERS: ATTEND Internal Medicine | DX: R06.02 Shortness of breath (principal) ==

== ENCOUNTER → 2020-06-28 | Outpatient (CLI) | payer OTHER, BC | LOC: LAB 12:25 | PROVIDERS: ATTEND Internal Medicine | DX: Z01.812 Encounter for preprocedural laboratory examination (principal); Z20.822 Contact with and (suspected) exposure to COVID-19 ==

== ENCOUNTER → 2020-06-30 | Outpatient (CLI) | payer OTHER, BC ==
--- NOTE | ~2020-06-30 | PFR/MVV ---
[facility] [place] [address] PULMONARY FUNCTION MVV/REPORT Name: YOLANDA HENAO Room #: [facility]#: [id number] Admission: 06/30/20 Attend Phys: Sloan Shannon MD Discharge: Date of : 52 Report #: [id number] THIS REPORT FOR: //name// >> SPIROMETRY: (BTPS) Height: in cm Weight: lbs kg Exam Date: PRE-RX POST-RX PRED BEST %PRED BEST %PRED %CHG FVC LITERS . . . . . . FEV1 LITERS . . . . . . FEV1/FVC % . . . . . . UUE05-36% L/Sec . . . . . . PEF L/SEC . . . . . . FEF50/FIF50 UNITLESS . . . . . . MVV L/Min . . . f 1/Min . . . >> LUNG VOLUMES: (BTPS) PRE-RX POST-RX PRED AVG %PRED AVG %PRED %CHG VC Liters . . . . . . TLC Liters . . . . . . RV Liters . . . . . . RV/TLC % . . . . . . FRC PL Liters . . . . . . FRC N2 Liters . . . . . . ERV Liters . . . . . . IC Liters . . . . . . >> DIFFUSION: DLCO ml/Min/mmHg . . . . . . DL Amberly ml/Min/mmHg . . . . . . DLCO/VA ml/Min/mmHg . . . . . . VA Liters . . . . . . COMMENTS: COMMENTS: >> RESISTANCE: [facility] [address] [place] [address] PULMONARY FUNCTION MVV/REPORT Name: YOLANDA HENAO Room #: REG [facility]#: [id number] Admission: 06/30/20 Attend Phys: Sloan Shannon MD Discharge: Date of : 52 Report #: [id number] PRE-RX PRED AVG %PRED Raw Total cmH20/L/Sec . . . Raw Insp cmH20/L/Sec . . . Raw Exp cmH20/L/Sec . . . Raw cmH20/L/Sec . . . Gaw L/Sec/cmH20 . . . sRaw cmH20 Sec . . . sGaw l/cmH20 Sec . . . Vtq Liters . . . # = OUTSIDE 95% CONFIDENCE INTERVAL CALIBRATION: PRED: 3.00 ACTUAL: EXP 3.01 INSP 3.02 [facility]-OL10- [facility]-- N-[id number] >> INTERPRETATION/IMPRESSION: DATE OF SERVICE: 06/30/2020 PULMONARY FUNCTION STUDIES ATTENDING PHYSICIAN: Dr. Sloan Shannon. SPIROMETRY: FEV1 is 2.67 liters (96%), FVC is 3.62 liters (88%), FEV1/FVC is 74%. Postbronchodilator therapy with no significant response. LUNG VOLUMES: Total lung capacity is 7.55 liters (125%). RV is 2.06 liters (86%). Diffusing capacity is 88%. IMPRESSION: Pulmonary function studies are consistent with a mild obstructive airflow defect with no significant response to bronchodilator therapy. There is mild hyperinflation. Diffusing capacity is normal. By: Barry Celaya MD /nt
== END ==
LOC: PUL 12:45
PROVIDERS: ATTEND Internal Medicine
DX: J98.11 Atelectasis (principal); J98.8 Other specified respiratory disorders; R06.00 Dyspnea, unspecified

== ENCOUNTER → 2020-10-21 | Outpatient (CLI) | payer OTHER, BC | LOC: SJCVCIMAG 07:35 | PROVIDERS: ATTEND Internal Medicine Cardiovascular Disease | DX: I08.8 Other rheumatic multiple valve diseases (principal); R94.31 Abnormal electrocardiogram [ECG] [EKG]; I49.3 Ventricular premature depolarization; I77.89 Other specified disorders of arteries and arterioles; I25.10 Atherosclerotic heart disease of native coronary artery without angina pectoris; I10 Essential (primary) hypertension; E78.00 Pure hypercholesterolemia, unspecified; N40.0 Benign prostatic hyperplasia without lower urinary tract symptoms; E78.5 Hyperlipidemia, unspecified; Z95.1 Presence of aortocoronary bypass graft; Z79.82 Long term (current) use of aspirin; Z79.899 Other long term (current) drug therapy; Z86.16 Personal history of COVID-19 ==

== ENCOUNTER → 2020-11-04 | Outpatient (CLI) | payer OTHER, BC | LOC: ULTRA 10:23 | PROVIDERS: ATTEND Family Medicine | DX: R22.1 Localized swelling, mass and lump, neck (principal) ==

== ENCOUNTER → 2020-12-28 | Outpatient (CLI) | payer OTHER, BC ==
[2020-12-28 09:18] LABS: CREATININE 1.1 mg/dL (0.7-1.3)
== END ==
LOC: MRI 08:36
PROVIDERS: ATTEND Otolaryngology Plastic Surgery within the Head & Neck
DX: D17.0 Benign lipomatous neoplasm of skin and subcutaneous tissue of head, face and neck (principal); M47.812 Spondylosis without myelopathy or radiculopathy, cervical region

== ENCOUNTER → 2021-02-02 | Outpatient (CLI) | payer OTHER, BC ==
--- NOTE | 2021-02-08 11:07 | PATH ---
[facility] [address] [address] PATHOLOGY RPT PROCEDURE Name: JULIANOYOLANDA JOCELYNEMARTYREJI Room #: REG [facility]#: [id number] Admission: 02/02/21 Date of : 52 Discharge: Report #: [id number] Path Case #: [id number] [facility] Accession Number: [id number] . 01 Material submitted: . neck - RIGHT NECK MASS. Modifiers: right . 01 Clinical history: . US FINE NEEDLE ASPIRATION OF NECK WITH US GUIDANCE . 01 Diagnosis: Soft tissue, "right neck mass": - Fibroadipose tissue. - No lymphoid elements identified. - See comment. (DAWSON:isabel; 02/04/2021) [facility] 02/04/2021 1336 Local . 01 Comment: An attempt was made to reach Dr. Marcello Conye on 02/04/2021. 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 The biopsy is minute and may not be patient services representative. Suggest clinical correlation and follow up as clinically indicated. (DAWSON:isabel; 02/04/2021) . 01 Addendum: . Special studies report received from [facility], [address] [place] [address], [address], [place], [address], on case [id number], labeled with their number [id number], dated 02/05/2021. . Flow Cytometry: Hematologic Neoplasia Assessment . Clinical History Right neck mass . Indication For Study Evaluation for hematolymphoid neoplasia . Specimen Tissue, Right Neck . Viability 62% (7AAD exclusion) . Interpretation Tissue, Right Neck: [address] [address] PATHOLOGY RPT PROCEDURE Name: YOLANDA POLK Room #: [facility] [id number] Admission: 02/02/21 Date of : 52 Discharge: Report #: [id number] Path Case #: [id number] No significant lymphoid immunophenotypic abnormalities detected . Comments Correlation with available clinical, laboratory, and morphologic data is recommended. . Populations Analyzed Lymphocytes: 9% B-cells: 0.1%, polytypic/polyclonal sIg light chain pattern T-cells: no significant abnormalities of the markers tested CD45 Negative 91% No significant reactivity with the markers tested Events/Debris: (may represent non-hematolymphoid cells, degenerated cells, debris, unlysed red blood cells, etc.) . Morphologic Evaluation A slide was reviewed for environmental quality analyst purposes only. . Specimen Description Total Cell Yield: 0.02 X 10 and 6 . Reagent(s) Used CD5, CD10, CD19, CD20, CD45, kappa, lambda . at [email or web address]. Kirt Miguel MD Pathologist . Intended Use Flow cytometry is optimally used to immunophenotypically characterize abnormal populations when they are detected. Negative flow cytometry results do not exclude lymphoma or neoplasia. Possible false negative flow cytometry results may occur in, but are not limited to, the following: neoplastic cells in Hodgkin lymphoma are not typically adequately represented by routine clinical flow cytometry; neoplastic cells may be lost or inadequately represented due to degeneration, sample processing, sampling artifact, or patchy involvement; plasma cells are typically underrepresented by flow cytometry; immature cells/blasts may be underrepresented due to hemodilution; myeloproliferative disorders and low grade myelodysplasia may not have immunophenotypic abnormalities or increased blasts. Correlation with all available clinical, laboratory, and morphologic data is always necessary to assess for the possibility of false negative flow cytometry results and to establish a diagnosis. Each marker in this analysis was used to assess for potential antigenic abnormalities or to evaluate detected abnormalities. . Any image or images that accompany this report are patient services [place] [address] PATHOLOGY RPT PROCEDURE Name: YOLANDA POLK AMITA Room #: REG [facility]#: [id number] Admission: 02/02/21 Date of : 52 Discharge: Report #: [id number] Path Case #: [id number] only and should not be used to render a diagnosis. . Disclaimer(s) This test was developed and its performance characteristics determined by [facility] [email or web address]. It has not been cleared or approved by the Food and Drug Administration. . [facility] is a business unit of [facility] a wholly-owned subsidiary of [employer]. . This test was performed at [facility]. at [address], [place], [address] - Aircraft Cleaning Supervisor: Tc Cox MD. . For inquiries, the physician may contact Lab: [phone] . A complete copy of the report is on file. . Professional services performed by [facility] at [address], [place] [address]. Technical services performed by [facility] at [address], [place] [address]. . (SHA:[facility] 02/07/2021) . [place]/02/07/2021 Addendum Electronically Signed by Lauri Kimble MD. Pathologist . 01 Electronically signed: . Lauri Kimble MD, Pathologist NPI- [id number] . 01 Gross description: . Received in formalin labeled "Yolanda Polk, right neck mass" are multiple minute garzon-white cylindrical soft tissue fragments measuring in aggregate 0.9 x 0.3 x 0.1 cm. The specimen is submitted entirely in cassettes A1-A3. Also present is a container filled with RPMI solution, labeled identically. The container displays multiple minute garzon-white tissue fragments. The RPMI tissue is forwarded for ancillary studies. (SK; 02/03/2021) [facility] 02/03/2021 1244 Local . 01 Pathologist provided ICD-10: R22.1 . 01 CPT . [address] [address] PATHOLOGY RPT PROCEDURE Name: YOLANDA POLK Room #: REG [facility] Branch.#: [id number] Admission: 02/02/21 Date of : 52 Discharge: Report #: [id number] Path Case #: [id number] Specimen Comment: A courtesy copy of this report has been sent to [phone] Specimen Comment: Report sent to Specimen Comment: A duplicate report has been generated due to demographic updates. Performed at: [facility] [place] [address] [facility] [address], [place], [place] [id number] MD Lauri Kimble MD Phone: [phone]
== END | disposition home or self-care (01) ==
LOC: ULTRA 08:30
PROVIDERS: ATTEND Otolaryngology Plastic Surgery within the Head & Neck
DX: R22.1 Localized swelling, mass and lump, neck (principal); M79.89 Other specified soft tissue disorders; N40.0 Benign prostatic hyperplasia without lower urinary tract symptoms; Z98.890 Other specified postprocedural states; Z79.899 Other long term (current) drug therapy; Z79.82 Long term (current) use of aspirin; Z20.822 Contact with and (suspected) exposure to COVID-19

== ENCOUNTER → 2021-03-25 | Outpatient (CLI) | payer OTHER, BC | LOC: SJCVCIMAG 02-02 09:13 | PROVIDERS: ATTEND Internal Medicine Cardiovascular Disease | DX: Z01.810 Encounter for preprocedural cardiovascular examination (principal); I25.10 Atherosclerotic heart disease of native coronary artery without angina pectoris; I10 Essential (primary) hypertension; Z95.1 Presence of aortocoronary bypass graft; Z86.16 Personal history of COVID-19; E78.5 Hyperlipidemia, unspecified; G47.33 Obstructive sleep apnea (adult) (pediatric); E78.00 Pure hypercholesterolemia, unspecified; Z79.82 Long term (current) use of aspirin; Z79.899 Other long term (current) drug therapy ==